=== PATIENT | male | born 1970 | race Caucasian/White ===

== ENCOUNTER 2019-04-18 14:18 | Emergency (ER) | payer OTHER, SELFPAY ==
[2019-04-18] MEDS ORDERED: Adacel (T-DAP) 0.5 ML SYRINGE ONE (14:48)
[2019-04-18] MEDS ORDERED: Lidocaine 1% 20 ML MDV ONE (14:48)
--- NOTE | 2019-04-18 15:06 | CT ---
Exam: CT brain PROVIDED CLINICAL HISTORY: Trauma COMPARISON: None FINDINGS: The ventricular system is normal in size and morphology. No evidence for intracranial hemorrhage or mass effect. The extracranial soft tissues and osseous structures demonstrate no evidence for an acute abnormality. IMPRESSION: No evidence for intracranial hemorrhage or mass effect.
== END 2019-04-18 15:25 | disposition home or self-care (01) ==
LOC: MADERS 14:18
DX: S01.511A Laceration without foreign body of lip, initial encounter (principal); R11.2 Nausea with vomiting, unspecified; F17.210 Nicotine dependence, cigarettes, uncomplicated; V89.2XXA Person injured in unspecified motor-vehicle accident, traffic, initial encounter
CPT/HCPCS: 12011; 70450; 90471; 90715; J2001